=== PATIENT | female | born 1970 ===

== ENCOUNTER 2024-07-01 06:40 | Day surgery (SDC) | payer BC, SELFPAY | END 2024-07-01 13:47 | disposition home or self-care (01) | LOC: GI 06:40 | PROVIDERS: ATTENDING PHYSICIAN Internal Medicine Gastroenterology; FAMILY PHYSICIAN Internal Medicine | DX: Z12.11 Encounter for screening for malignant neoplasm of colon (principal); K62.1 Rectal polyp | CPT/HCPCS: 45385; 88305 ==